=== PATIENT | female | born 1970 | race Caucasian/White ===

== ENCOUNTER 2022-08-31 23:08 | Emergency (ER) | payer OTHER ==
[2022-08-31 23:19] VITALS: TEMP 98.4; BMI 29.7
[2022-08-31] MEDS ORDERED: IBUPROFEN 600 MG TABLET (FP) PO ONE ×2 (23:45→23:56)
[2022-08-31] MEDS ORDERED: CYCLOBENZAPRINE HCL 10 MG TABLET (FP) PO ONE (23:45)
[2022-08-31] MEDS ORDERED: CYCLOBENZAPRINE HCL 5 MG TABLET ONE (23:56)
[2022-09-01 00:36] VITALS: BP 126/81; PULSE 64; RESP 18
== END 2022-09-01 00:51 | disposition home or self-care (01) ==
LOC: FER 23:08
DX: S13.4XXA Sprain of ligaments of cervical spine, initial encounter (principal); V89.0XXA Person injured in unspecified motor-vehicle accident, nontraffic, initial encounter
CPT/HCPCS: 72050-TC-FY; 72100-TC-FY; 99283-25